=== PATIENT | male | born 1960 | race Caucasian/White ===

== ENCOUNTER → 2016-08-08 | Outpatient (CLI) | payer BC ==
--- NOTE | 2016-08-08 18:42 | PCVCIMAG ---
APPROVED REPORT Study performed: 08/08/2016 15:32:44 EXAM: Comprehensive 2D, Doppler, and color-flow Echocardiogram Patient Location: Echo lab Status: routine Other Information Study Quality: Good Indications Mitral Valve Prolapse Pericarditis MITRAL VALVE REPAIR 2D Dimensions LVEF(%): 57.35 (>50%) IVSd: 9.16 (7-11mm)LVOT Diam: 22.39 (18-24mm) LVDd: 40.87 mm PWd: 6.21 (7-11mm)Ascending Ao: 25.76 (22-36mm) LVDs: 28.71 (25-40mm) Left Atrium: 30.93 (27-40mm) Aortic Root: 26.94 mm LV Single Plane 4CH: 53.78 % LV Single Plane 2CH: 65.82 %Garcia's LVEF: 59.80 % Biplane EF: 60.0 % Volumes Left Atrial Volume (Systole) Single Plane 4CH: 41.32 mLSingle Plane 2CH: 58.84 mL LA ESV Index: 31.00 mL/m2 Aortic Valve AoV Peak Arnold.: 1.16 m/s AO Peak Gr.: 5.41 mmHgLVOT Max P.37 mmHg LVOT Max V: 1.05 m/s LEV Vmax: 3.54 cm2 Mitral Valve E/A Ratio: 1.4 MV Decel. Time: 256.86 ms MV E Max Arnold.: 1.04 m/s MV A Arnold.: 0.76 m/s MV PHT: 74.49 ms IVRT: 110.73 ms TDI E/Lateral E': 10.40E/Medial E': 10.40 Medial E' Arnold.: 0.10 m/s Lateral E' Arnold.: 0.10 m/s Pulmonary Valve PV Peak Arnold.: 0.79 m/sPV Peak Gr.: 2.48 mmHg Pulmonary Vein P Vein S: 0.49 m/sP Vein A: 0.36 m/s P Vein D: 0.43 m/sP Vein A Dur.: 110.7 msec P Vein S/D Ratio: 1.14 Tricuspid Valve TR Peak Arnold.: 2.17 m/s TR Peak Gr.: 18.92 mmHg TV Vmax: 0.65 m/s Left Ventricle The left ventricle is normal size. There is normal LV segmental wall motion. There is normal left ventricular wall thickness. Left ventricular systolic function is normal. The left ventricular ejection fraction is within the normal range. LVEF is 55-60%. The left ventricular diastolic function is normal. Right Ventricle The right ventricle is normal size. The right ventricular systolic function is normal. Atria The left atrium size is normal. Right atrium is mildly dilated. Aortic Valve The aortic valve is normal in structure. No aortic regurgitation is present. There is no aortic valvular stenosis. Mitral Valve Posterior mitral valve leaflet is thickened and fixed consistent with prior mitral valve repair surgery. There is no mitral valve regurgitation noted. No evidence of mitral valve stenosis. Tricuspid Valve The tricuspid valve is normal in structure. There is mild-moderate tricuspid valve regurgitation noted with a PA pressure of 26mmHg. Pulmonic Valve The pulmonary valve is normal in structure. There is no pulmonic valvular regurgitation. Great Vessels The aortic root is normal in size. The ascending aorta is normal in size. IVC is normal in size and collapses with >50% inspiration Pericardium There is no pericardial effusion. There is no pleural effusion. <Conclusion> The left ventricle is normal size. Left ventricular systolic function is normal. The left ventricular ejection fraction is within the normal range. LVEF is 55-60%. The right ventricular systolic function is normal. The left atrium size is normal. The aortic valve is normal in structure. Posterior mitral valve leaflet is thickened and fixed consistent with prior mitral valve repair surgery. There is mild-moderate tricuspid valve regurgitation noted with a PA pressure of 26mmHg. No evidence of mitral valve stenosis. There is no mitral valve regurgitation noted. IVC is normal in size and collapses with >50% inspiration There is no pericardial effusion.
== END | disposition home or self-care (01) ==
LOC: PCVCIMAG 15:27
PROVIDERS: ATTEND Internal Medicine Cardiovascular Disease
DX: I07.1 Rheumatic tricuspid insufficiency (principal); I05.9 Rheumatic mitral valve disease, unspecified; E78.00 Pure hypercholesterolemia, unspecified; Z86.79 Personal history of other diseases of the circulatory system; Z98.890 Other specified postprocedural states; Z79.82 Long term (current) use of aspirin; Z79.899 Other long term (current) drug therapy
CPT/HCPCS: 80061; 93005; 93306; G0463

== ENCOUNTER → 2018-10-22 | Outpatient (CLI) | payer BC ==
--- NOTE | 2018-10-22 16:08 | PCVCIMAG ---
APPROVED REPORT Study performed: 10/22/2018 14:59:27 EXAM: Comprehensive 2D, Doppler, and color-flow Echocardiogram Patient Location: Echo lab Status: routine BSA: 1.87 HR: 58 bpmBP: 110/80 mmHg Rhythm: Bradycardia Other Information Study Quality: Adequate Risk Factors: Cardiac Risk Factors: Hyperlipidemia Indications Mitral valve repair 2D Dimensions IVSd: 10.43 (7-11mm)LVOT Diam: 22.73 (18-24mm) LVDd: 44.28 mm PWd: 8.33 (7-11mm)Ascending Ao: 33.75 (22-36mm) LVDs: 30.93 (25-40mm) Left Atrium: 34.34 (27-40mm) Aortic Root: 32.09 mm LV Single Plane 4CH: 53.61 % LV Single Plane 2CH: 65.84 % Biplane EF: 60.5 % Volumes Left Atrial Volume (Systole) Single Plane 4CH: 41.03 mLSingle Plane 2CH: 60.22 mL LA ESV Index: 29.00 mL/m2 Aortic Valve AoV Peak Arnold.: 1.09 m/s AO Peak Gr.: 4.77 mmHgLVOT Max P.05 mmHg LVOT Max V: 1.01 m/s LEV Vmax: 3.74 cm2 Mitral Valve E/A Ratio: 1.1 MV Decel. Time: 308.14 ms MV E Max Arnold.: 1.02 m/s MV A Arnold.: 0.90 m/s Pulmonary Valve PV Peak Gr.: 2.39 mmHg Pulmonary Vein P Vein S: 0.45 m/sP Vein A: 0.30 m/s P Vein D: 0.37 m/sP Vein A Dur.: 90.0 msec P Vein S/D Ratio: 1.22 Tricuspid Valve TR Peak Arnold.: 2.24 m/s TR Peak Gr.: 20.01 mmHg Left Ventricle The left ventricle is normal size. There is normal LV segmental wall motion. There is normal left ventricular wall thickness. Left ventricular systolic function is normal. The left ventricular ejection fraction is within the normal range. LVEF is 55%. The left ventricular diastolic function is normal. Right Ventricle The right ventricle is normal size. The right ventricular systolic function is normal. Atria The left atrium size is normal. The right atrium size is normal. Aortic Valve The aortic valve is normal in structure. No aortic regurgitation is present. There is no aortic valvular stenosis. Mitral Valve Normally functioning mitral valve repair. Trace mitral regurgitation. No evidence of mitral valve stenosis. Tricuspid Valve The tricuspid valve is normal in structure. Trace tricuspid regurgitation with PAP of 27 mmHg. Pulmonic Valve The pulmonary valve is normal in structure. There is no pulmonic valvular regurgitation. Great Vessels The aortic root is normal in size. IVC is normal in size and collapses >50% with inspiration. Pericardium There is no pericardial effusion. There is no pleural effusion. <Conclusion> The left ventricle is normal size. There is normal left ventricular wall thickness. LVEF is 55%. The left ventricular diastolic function is normal. The right ventricle is normal size. The left atrium size is normal. Normally functioning mitral valve repair. Trace mitral regurgitation. Trace tricuspid regurgitation with PAP of 27 mmHg. The aortic root is normal in size. There is no pericardial effusion.
== END | disposition home or self-care (01) ==
LOC: PCVCIMAG 15:00
PROVIDERS: ATTEND Internal Medicine Cardiovascular Disease
DX: I05.9 Rheumatic mitral valve disease, unspecified (principal); E78.00 Pure hypercholesterolemia, unspecified; I31.8 Other specified diseases of pericardium; E78.5 Hyperlipidemia, unspecified; Z72.89 Other problems related to lifestyle; Z79.82 Long term (current) use of aspirin; Z79.899 Other long term (current) drug therapy
CPT/HCPCS: 93306